=== PATIENT | male | born 1980 | race Two or more races ===

== ENCOUNTER 2016-06-16 18:21 | Emergency (ER) | payer OTHER ==
[~2016-06-16] VITALS: Ht 175.3 cm; Wt 90.7 kg
[2016-06-16 18:44] VITALS: BP 141/85
[2016-06-16] MEDS ORDERED: PROMETHAZINE-D118 ML ORAL (19:11)
[2016-06-16] MEDS ORDERED: AMOXICILLIN500 MG ORAL (19:11)
[2016-06-16 19:16] VITALS: BP 141/85
--- NOTE | 2016-06-16 21:59 | Emergency Room Report ---
History of Present Illness General Chief Complaint: Upper Respiratory Illness Source: Patient Present Illness [facility] The patient is a 35-year-old male presenting for sore throat and productive cough which began 2 days prior. Pain is described as an 8/10 dull ache it does not radiate from the throat. Pain worse with swallowing. Patient denies any sick contacts or recent travel. Patient denies any other symptoms including headache, neck pain or stiffness, nausea, vomiting, hemoptysis, shortness of breath, wheezing Allergies: Coded Allergies: No Known Allergies (Unverified , 06/16/16) Patient History Past Medical History: see triage record Pertinent Family History: none Reviewed Nursing Documentation: PMH: Agreed, PSxH: Agreed Nursing Documentation-PMH Past Medical History: No Stated History Review of Systems All Other Systems: negative except mentioned in HPI Physical Exam Vital Signs Date Time Temp Pulse Resp B/P Pulse Ox O2 Delivery O2 Flow Rate FiO2 06/16/16 18:44 98.8 112 20 141/85 98 Room Air Sp02 EP Interpretation: reviewed, normal General Appearance: no apparent distress, alert, GCS 15, non-toxic Head: normocephalic, atraumatic ENT: hearing grossly normal, no angioedema, normal voice, uvula midline, tonsillar swelling, pharyngeal erythema, tonsillar exudate Neck: full range of motion, supple/symm/no masses Respiratory: chest non-tender, lungs clear, normal breath sounds, no accessory muscle use, no wheezing, speaking full sentences Cardiovascular #1: regular rate, rhythm, no edema Genitourinary: normal inspection, no CVA tenderness Musculoskeletal: back normal, gait/station normal, normal range of motion, non- tender, calf tenderness Neurologic: alert, oriented x3, responsive, motor strength/tone normal, sensory intact, speech normal Psychiatric: judgement/insight normal, memory normal, mood/affect normal, no suicidal/homicidal ideation Skin: normal color, no rash, warm/dry, well hydrated Lymphatic: adenopathy - + cervical Medical Decision Making PA Attestation Dr. Aiken is my supervising physician. Patient management was discussed with my supervising physician Diagnostic Impression: Primary Impression: Pharyngitis, acute ER Course The patient is a 35-year-old male presenting for sore throat and productive cough Differential diagnosis include but not limited to pharyngitis, sinusitis, AOM, bronchitis, PNA Physical exam: The patient is mildly tachycardic and hypertensive.. Afebrile. No apparent distress HEENT exam: There is bilateral tonsillar edema, erythema, and exudate. Uvula midline. Moist mucous membranes. There is bilateral cervical lymphadenopathy. Lungs are clear to auscultation bilaterally Skin is warm and dry. No rash The patient will be discharged home with a prescription for amoxicillin and is given ER precautions. Patient will followup with primary care Last Vital Signs Date Time Temp Pulse Resp B/P Pulse Ox O2 Delivery O2 Flow Rate FiO2 06/16/16 19:16 98.8 112 20 141/85 98 Room Air Status: improved Disposition: HOME, SELF-CARE Condition: Improved Scripts D-Methorphan Hb/Prometh Hcl* (PROMETHAZINE-DM SYRUP*) 118 Ml Syrup 5 ML ORAL Q6H Y for For Cough, #118 ML 0 Refills Prov: BERNADINE ABREU 06/16/16 Amoxicillin* (AMOXIL*) 500 Mg Capsule 500 MG ORAL Q12HR, #20 CAP Prov: BERNADINE ABREU 06/16/16 Patient Instructions: Pharyngitis Additional Instructions: I discussed my findings with the patient. All questions and concerns have been answered. Treatment and medication compliance have been addressed. I advised the patient that they need to follow up with PMD in 3-5 days. Return to ED if pain remains or worsens, cough worsens or remains, you notice blood in your sputum, you notice wheezing, you experience a fever, or if needed for any reason. Patient verbalized understanding of discharge instructions. BERNADINE ABREU Jun 16, 2016 21:59
== END 2016-06-16 19:16 | disposition home or self-care (01) ==
LOC: EMR 19:02
DX: J02.9 Acute pharyngitis, unspecified (principal)
CPT/HCPCS: 99284